=== PATIENT | female | born 1960 | race Caucasian/White ===

== ENCOUNTER → 2016-12-03 | Outpatient (CLI) | payer OTHER ==
--- NOTE | 2016-12-06 08:53 | MM ---
Reason for exam: screening (asymptomatic). Last mammogram was performed 1 year and 4 months ago. History: Patient is nulliparous. Took estrogen for 2 years 8 months beginning at age 46. Took other hormone for 3 years. Physical Findings: A clinical breast exam by your physician is recommended on an annual basis and results should be correlated with mammographic findings. MG Screening Mammo w CAD Bilateral CC and MLO view(s) were taken. Prior study comparison: August 16, 2015, bilateral MG screening mammo w CAD. August 02, 2014, bilateral MG screening mammo w CAD. There are scattered fibroglandular densities. There is no discrete abnormality. ASSESSMENT: Negative, BI-RAD 1 RECOMMENDATION: Routine screening mammogram of both breasts in 1 year.
== END | disposition home or self-care (01) ==
LOC: RADMAMWWP 11:03
PROVIDERS: ATTEND Family Medicine
DX: Z12.31 Encounter for screening mammogram for malignant neoplasm of breast (principal)

== ENCOUNTER → 2017-04-26 | Outpatient (CLI) | payer OTHER ==
--- NOTE | 2017-04-26 12:02 | XR ---
EXAMINATION TYPE: XR shoulder complete RT DATE OF EXAM: 04/26/2017 COMPARISON: NONE HISTORY: Pain TECHNIQUE: Three views are submitted. FINDINGS: The osseous structures are intact. There is no acute fracture or dislocation. The AC joint is maint ained. IMPRESSION: 1. No acute process.
== END ==
LOC: RADXRMAIN 11:33
PROVIDERS: ATTEND Family Medicine
DX: M25.511 Pain in right shoulder (principal)

== ENCOUNTER → 2017-09-24 | Outpatient (CLI) | payer OTHER ==
[2017-09-24 12:16] LABS: Basophils % (A) 1 %; Eosinophils # (A) 0.1 k/uL (0-0.7); Eosinophils % (A) 2 %; HCT 47.6 % (34.0-46.0); HGB 14.6 gm/dL (11.4-16.0); Lymphocytes # (A) 2.5 k/uL (1.0-4.8); Lymphocytes % (A) 28 %; MCH 28.2 pg (25.0-35.0); MCHC 30.6 g/dL (31.0-37.0); MCV 92.2 fL (80.0-100.0); Monocytes # (A) 0.4 k/uL (0-1.0); Monocytes % (A) 5 %; Neutrophils # (A) 5.6 k/uL (1.3-7.7); Neutrophils % (A) 64 %; Platelet Count 272 k/uL (150-450); RBC 5.16 m/uL (3.80-5.40); RDW 12.5 % (11.5-15.5); WBC 8.8 k/uL (3.8-10.6)
[2017-09-24 13:58] LABS: Erythrocyte Sedimentation Rate 6 mm/hr (0-20)
== END ==
LOC: LABWHC1 11:07
PROVIDERS: ATTEND Physical Medicine & Rehabilitation
DX: M47.812 Spondylosis without myelopathy or radiculopathy, cervical region (principal); M50.321 Other cervical disc degeneration at C4-C5 level; M51.17 Intervertebral disc disorders with radiculopathy, lumbosacral region; M47.817 Spondylosis without myelopathy or radiculopathy, lumbosacral region; M54.5 Low back pain; M75.41 Impingement syndrome of right shoulder; M75.42 Impingement syndrome of left shoulder; M71.30 Other bursal cyst, unspecified site; M75.52 Bursitis of left shoulder; M75.51 Bursitis of right shoulder; M25.511 Pain in right shoulder; M25.512 Pain in left shoulder
CPT/HCPCS: 36415; 85025; 85652; 86140

== ENCOUNTER → 2018-05-26 | Outpatient (CLI) | payer OTHER ==
--- NOTE | 2018-05-29 09:17 | MM ---
Reason for exam: screening (asymptomatic). Last mammogram was performed 1 year and 6 months ago. History: Patient is nulliparous. Took estrogen for 2 years 8 months beginning at age 46. Took other hormone for 3 years. Physical Findings: A clinical breast exam by your physician is recommended on an annual basis and results should be correlated with mammographic findings. MG 3D Screening Mammo W/Cad Bilateral CC and MLO view(s) were taken. Prior study comparison: December 03, 2016, bilateral MG screening mammo w CAD. August 16, 2015, bilateral MG screening mammo w CAD. The breast tissue is heterogeneously dense. This may lower the sensitivity of mammography. There is no discrete abnormality. No significant changes when compared with prior studies. ASSESSMENT: Negative, BI-RAD 1 RECOMMENDATION: Routine screening mammogram of both breasts in 1 year.
== END | disposition home or self-care (01) ==
LOC: RADMAMWWP 07:52
PROVIDERS: ATTEND Family Medicine
DX: Z12.31 Encounter for screening mammogram for malignant neoplasm of breast (principal)
CPT/HCPCS: 77063; 77067

== ENCOUNTER → 2024-07-11 | Outpatient (CLI) | payer MEDICARE ==
--- NOTE | 2024-07-11 14:22 | US ---
EXAMINATION TYPE: US arterial LE single level DATE OF EXAM: 07/11/2024 1:28 PM COMPARISONS: None. CLINICAL INDICATION: Female, 64 years old with history of I73.9 PVD; TECHNIQUE: Systolic pressures were taken of the upper and lower extremity arteries with ankle-brachia l indices and toe brachial indices calculated bilaterally. History of: Smoker: No Hypertension: Yes Diabetic: No Hyperlipidemia: No TIA/CVA: No Previous Vascular Surgery: No CAD: No FL: No Vascular Ulcers: No Claudication: Bilateral Gangrene: No FINDINGS: Doppler Waveforms: Right: Multiphasic Left: Biphasic Brachial Artery systolic pressure: Right: 131 Left: 149 Posterior Tibial artery systolic pressure: Right: 166 Left: 166 Dorsalis Pedis artery systolic pressure: Right: 137 Left: 154 Ankle-Brachial Indices: Right: 1.1 Left: 1.1 (Vessel hardening > 1.4; Normal 0.9 - 1.4, Moderate 0.7 - 0.9, Severe 0.5-0.7) IMPRESSION: Normal ankle-brachial brachial indices bilaterally. [facility], , 07/11/2024 2:20 PM
== END | disposition home or self-care (01) ==
LOC: RADUSWWP 12:50
PROVIDERS: ATTEND Internal Medicine
DX: I73.9 Peripheral vascular disease, unspecified (principal); I10 Essential (primary) hypertension
CPT/HCPCS: 93922

== ENCOUNTER 2024-07-19 05:07 | Emergency (ER) | payer MEDICARE ==
[2024-07-19 05:17] VITALS: RESP 18
--- NOTE | 2024-07-19 05:48 | ED ---
General Adult HPI - General Source: patient Mode of arrival: ambulatory <Luis Fernando Hyde - Last Filed: 07/19/24 07:10> <Armando Araiza - Last Filed: 07/20/24 07:42> - General Chief complaint: Abdominal Pain Stated complaint: ABD Pain Time Seen by Provider: 07/19/24 05:08 - History of Present Illness Initial comments: Dictation was produced using CARGO[employer] dictation software. please excuse any grammatical, word or spelling errors. Chief Complaint: 64-year-old female presents with right lower quadrant pain History of Present Illness: Patient 64-year-old female she has history of cholecystectomy, A-fib dyslipidemia states that for the last couple days she has been having right lower quadrant pain. Patient reports extensive history of nephrolithiasis. Recently moved here from [place]. She establish care with urologist recently. She states that they did an ultrasound that did not show any significant blockage. Patient complains of fever. She is where she is having UTI because she is having some suprapubic pressure. Denies any fever. She does endorse some mild chills. Denies any CVA pain. The ROS documented in this emergency department record has been reviewed and confirmed by me. Those systems with pertinent positive or negative responses have been documented in the HPI. All other systems are other negative and/or noncontributory. (Luis Fernando Hyde) - Related Data Previous Rx's Medication Instructions Recorded Cefpodoxime Proxetil [Vantin] 200 mg PO Q12HR 10 Days #20 tab 07/19/24 HYDROcodone/APAP 5-325MG [Smoot 1 tab PO Q6HR PRN #12 tab 07/19/24 5-325] Ibuprofen [Motrin] 600 mg PO Q8HR PRN #24 tab 07/19/24 Allergies Allergy/AdvReac Type Severity Reaction Status Date / Time azithromycin AdvReac Nausea & Verified 07/19/24 05:17 Vomiting & Diarrhea Review of Systems ROS Other: All systems not noted in ROS Statement are negative. <Luis Fernando Hyde - Last Filed: 07/19/24 07:10> ROS Other: All systems not noted in ROS Statement are negative. <Armando Araiza - Last Filed: 07/20/24 07:42> ROS Statement: Those systems with pertinent positive or pertinent negative responses have been documented in the HPI. Past Medical History Past Medical History: Atrial Fibrillation, GERD/Reflux, Hyperlipidemia, Hypertension, Osteoarthritis (OA) History of Any Multi-Drug Resistant Organisms: None Reported Past Surgical History: Cholecystectomy Additional Past Surgical History / Comment(s): Cholecystectomy (2014-) Past Psychological History: Anxiety, Depression Smoking Status: Never smoker Past Alcohol Use History: None Reported Past Drug Use History: None Reported <Luis Fernando Hyde - Last Filed: 07/19/24 07:10> General Exam <Luis Fernando Hyde - Last Filed: 07/19/24 07:10> - General Exam Comments Initial Comments: PHYSICAL EXAM: General Impression: Alert and oriented x3, not in acute distress HEENT: Normocephalic atraumatic, extra-ocular movements intact, pupils equal and reactive to light bilaterally, mucous membranes moist. Cardiovascular: Heart regular rate and rhythm Chest: Able to complete full sentences, no retractions, no tachypnea Abdomen: abdomen soft, non-tender, non-distended, no organomegaly Musculoskeletal: Pulses present and equal in all extremities, no peripheral edema Motor: no focal deficits noted Neurological: CN II-XII grossly intact, no focal motor or sensory deficits noted Skin: Intact with no visualized rashes Psych: Normal affect and mood (Luis Fernando Hyde) Course Vital Signs 07/19/24 07/19/24 07/19/24 05:08 07:49 08:44 Temperature 97.6 F 98.4 F 98.4 F Pulse Rate 69 72 70 Respiratory 18 18 18 Rate Blood Pressure 159/85 148/70 144/87 O2 Sat by Pulse 97 97 97 Oximetry Medical Decision Making - Lab Data Result diagrams: 07/19/24 05:46 07/19/24 05:46 <Luis Fernando Hyde - Last Filed: 07/19/24 07:10> - Lab Data Result diagrams: 07/19/24 05:46 07/19/24 05:46 <Armando Araiza - Last Filed: 07/20/24 07:42> - Medical Decision Making Was pt. sent in by a medical professional or institution (, PA, FAILURE ANALYSIS TECHNICIAN, urgent care, hospital, or penitentiary...) When possible be specific @ -No Did you speak to anyone other than the patient for history (EMS, parent, family, police, friend...)? What history was obtained from this source @ -No Did you review nursing and triage notes (agree or disagree)? Why? @ -I reviewed and agree with nursing and triage notes Were old charts reviewed (outside hosp., previous admission, EMS record, old EKG, old radiological studies, urgent care reports/EKG's, penitentiary records)? Report findings @ -No old charts were reviewed Differential Diagnosis (chest pain, altered mental status, abdominal pain women, abdominal pain men, vaginal bleeding, musculoskeletal, weakness, fever, dyspnea, syncope, headache, dizziness, GI bleed, back pain, seizure, CVA, palpatations, mental health)? @ -Differential Abdominal Pain Women: Appendicitis, Cholecystitis, diverticulosis, ischemic bowel, pancreatitis, hepatitis, UTI, gastroenteritis, AAA, incarcerated hernia, bowel obstruction, constipation, inflammatory bowel, hepatitis, peptic ulcer disease, splenic infarction, perforated viscus, vulvitis, ovarian torsion, PID, kidney stone, placenta abruption, this is not meant to be an all-inclusive list EKG interpreted by me (3pts min.). @ -None done X-rays interpreted by me (1pt min.). @ -None done CT interpreted by me (1pt min.). @ -CT abdomen pelvis without contrast shows 4 mm UVJ stone U/S interpreted by me (1pt. min.). @ -None done What testing was considered but not performed or refused? (CT, X-rays, U/S, labs)? Why? @ -None What meds were considered but not given or refused? Why? @ -None Was smoking cessation discussed for >3mins.? @ -No Were there social determinants of health that impacted care today? How? (Homelessness, low income, unemployed, alcoholism, drug addiction, transportation, low edu. Level, literacy, decrease access to med. care, fdc, rehab)? @ -No Was there de-escalation of care discussed even if they declined (Discuss DNR or withdrawal of care, Hospice)? DNR status @ -No What co-morbidities impacted this encounter? (DM, HTN, Smoking, COPD, CAD, Cancer, CVA, ARF, Chemo, Hep., AIDS, mental health diagnosis, sleep apnea, morbid obesity)? @ -Kidney stones Was patient admitted / discharged? Hospital course, mention meds given and route, prescriptions,, going to OR and other pertinent info. @ -64-year-old female presents emergency department right lower quadrant pain. Patient extensive history of kidney stones. Vital signs upon arrival are within acceptable limits. Patient mild distress. Mild leukocytosis 11.1. CT shows 4 mm UVJ stone with inflammatory findings around the bladder suggesting urinary tract infection. Patient reevaluated at 7:09 AM still having symptoms. She is offered admission to the hospital under urology care. She would prefer to try to have her symptoms managed more. Patient given another dose of pain medication and another liter of fluids. Patient care signed out to Dr. Du at 7:00 AM for further management of patient. Did you discuss the management of the patient with other professionals (professionals i.e. , PA, FAILURE ANALYSIS TECHNICIAN, lab, RT, psych nurse, social media sr strategy manager, vp treasurer, teacher, naval gunfire liaison officer, showcase trimmer)? Give summary @ -No Was critical care preformed (if so, how long)? @ -No Undiagnosed new problem with uncertain prognosis? @ -No Drug Therapy requiring intensive monitoring for toxicity (Heparin, Nitro, Insulin, Cardizem)? @ -No Were any procedures done? @ -No Diagnosis/symptom? Acute, or Chronic, or Acute on Chronic? Uncomplicated (without systemic symptoms) or Complicated (systemic symptoms)? @ -Kidney stone Side effects of treatment? @ -No Exacerbation, Progression, or Severe Exacerbation? @ -No Poses a threat to life or bodily function? How? (Chest pain, USA, ME, pneumonia, PE, COPD, DKA, ARF, appy, cholecystitis, CVA, Diverticulitis, Homicidal, Suicidal, threat to staff... and all critical care pts) @ -yes (Luis Fernando Hyde) 64-year-old female, care had been signed out at shift change awaiting reevaluation of pain control. Patient resting comfortably, pain is controlled in the emergency department. Patient has a urologist that she is currently following with. Urinalysis did show rare bacteria and urine culture is obtained. The patient is given strict return parameters she will monitor for fever, worsening pain. She will call her urologist today and return as needed. (Armando Araiza) - Lab Data Lab Results 12/12/24 12/12/24 12/12/24 Range/Units 05:45 05:46 05:46 WBC 11.1 H (3.8-10.6) k/uL RBC 5.12 (3.80-5.40) m/uL Hgb 15.3 (11.4-16.0) gm/dL Hct 44.9 (34.0-46.0) % MCV 87.7 (80.0-100.0) fL MCH 29.8 (25.0-35.0) pg MCHC 34.0 (31.0-37.0) g/dL RDW 12.7 (11.5-15.5) % Plt Count 286 (150-450) k/uL MPV 8.9 Neutrophils % 68 % Lymphocytes % 23 % Monocytes % 5 % Eosinophils % 3 % Basophils % 1 % Neutrophils # 7.5 (1.3-7.7) k/uL Lymphocytes # 2.6 (1.0-4.8) k/uL Monocytes # 0.5 (0-1.0) k/uL Eosinophils # 0.3 (0-0.7) k/uL Basophils # 0.1 (0-0.2) k/uL Sodium 138 (137-145) mmol/L Potassium 4.7 (3.5-5.1) mmol/L Chloride 109 H (98-107) mmol/L Carbon Dioxide 23 (22-30) mmol/L Anion Gap 6 mmol/L BUN 26 H (7-17) mg/dL Creatinine 0.87 (0.52-1.04) mg/dL Est GFR (CKD-EPI)AfAm 81 (>60 ml/min/1.73 sqM) Est GFR (CKD-EPI)NonAf 70 (>60 ml/min/1.73 sqM) Glucose 128 H (74-99) mg/dL Calcium 9.8 (8.4-10.2) mg/dL Total Bilirubin 1.0 (0.2-1.3) mg/dL AST 36 (14-36) U/L ALT 27 (4-34) U/L Alkaline Phosphatase 77 (38-126) U/L Total Protein 7.3 (6.3-8.2) g/dL Albumin 4.4 (3.5-5.0) g/dL Lipase 158 (23-300) U/L Urine Color Light Red Urine Appearance Cloudy H (Clear) Urine pH 5.5 (5.0-8.0) Ur Specific [place] 1.030 (1.001-1.035) Urine Protein 1+ H (Negative) Urine Glucose (UA) Negative (Negative) Urine Ketones Negative (Negative) Urine Blood Large H (Negative) Urine Nitrite Negative (Negative) Urine Bilirubin Negative (Negative) Urine Urobilinogen <2.0 (<2.0) mg/dL Ur Leukocyte Esterase Small H (Negative) Urine RBC >182 H (0-5) /hpf Urine WBC 13 H (0-5) /hpf Urine WBC Clumps Rare H (None) /hpf Ur Squamous Epith Cells 5 H (0-4) /hpf Calcium Oxalate Crystal Many H (None) /hpf Urine Bacteria Moderate H (None) /hpf Hyaline Casts 8 H (0-2) /lpf Urine Mucus Many H (None) /hpf Urine Yeast (Budding) Occasional H (None) /hpf Disposition <Luis Fernando Hyde - Last Filed: 07/19/24 07:10> Is patient prescribed a controlled substance at d/c from ED?: No Time of Disposition: 08:01 <Armando Araiza - Last Filed: 07/20/24 07:42> Clinical Impression: Calculus of kidney Disposition: HOME SELF-CARE Condition: Fair Instructions (If sedation given, give patient instructions): Kidney Stones (ED) Additional Instructions: Please follow-up with your urologist. Please return with fever, worsening pain, any new concerns. Prescriptions: Ibuprofen [Motrin] 600 mg PO Q8HR PRN #24 tab PRN Reason: Pain HYDROcodone/APAP 5-325MG [Smoot 5-325] 1 tab PO Q6HR PRN #12 tab PRN Reason: Pain Cefpodoxime Proxetil [Vantin] 200 mg PO Q12HR 10 Days #20 tab Referrals: Alfredo Plaza MD [Primary Care Provider] - 1-2 days
[2024-07-19] MEDS: KETOROLAC 15 MG/ML 1 ML VIAL IVP STA (05:51)
[2024-07-19] MEDS: ONDANSETRON 4 MG/2 ML VIAL IVP STA (05:51)
[2024-07-19] MEDS: SODIUM CHLORIDE 0.9% 1,000 ML IV STA ×2 (05:51→07:27)
[2024-07-19 06:01] LABS: Basophils # (A) 0.1 k/uL (0-0.2); Basophils % (A) 1 %; Eosinophils # (A) 0.3 k/uL (0-0.7); Eosinophils % (A) 3 %; HCT 44.9 % (34.0-46.0); HGB 15.3 gm/dL (11.4-16.0); Lymphocytes # (A) 2.6 k/uL (1.0-4.8); Lymphocytes % (A) 23 %; MCH 29.8 pg (25.0-35.0); MCV 87.7 fL (80.0-100.0); Mean Platelet Volume 8.9; Monocytes # (A) 0.5 k/uL (0-1.0); Monocytes % (A) 5 %; Neutrophils # (A) 7.5 k/uL (1.3-7.7); Neutrophils % (A) 68 %; Platelet Count 286 k/uL (150-450); RBC 5.12 m/uL (3.80-5.40); RDW 12.7 % (11.5-15.5); WBC 11.1 k/uL (3.8-10.6)
--- NOTE | 2024-07-19 06:18 | CT ---
EXAMINATION TYPE: CT abdomen pelvis wo con DATE OF EXAM: 07/19/2024 HISTORY: c/o lower right sided abdominal pain + changes in urination including more frequent and smal l amounts of blood CT DLP: 999.6 mGycm. Automated Exposure Control for Dose Reduction was Utilized. TECHNIQUE: CT scan of the abdomen and pelvis is performed without oral or IV contrast. COMPARISON: NONE FINDINGS: Within the limitations of a non-contrast study, the following observations are made. LUNG BASES: No significant abnormality is appreciated. LIVER/GB: Liver is heterogeneously hypodense consistent with diffuse fatty infiltrative hepatocellula r disease. Cholecystectomy clips are present. PANCREAS: No significant abnormality is seen. SPLEEN: No significant abnormality is seen. ADRENALS: No significant abnormality is seen. KIDNEYS: There is 4 mm calculus in distal right ureter axial image 134 causing mild right-sided hydro nephrosis. There is 13 mm nonobstructing calculus in the left kidney upper pole level axial image 51. There is partially exophytic 3.0 cm low dense lesion anterior upper pole left kidney favoring simple thin-walled cyst on axial image 49. No left-sided hydronephrosis. Poorly distended bladder without i ntraluminal calculus. Mild wall thickening and fat stranding. BOWEL: No significant abnormality is seen. GENITAL ORGANS: No gross abnormality seen. LYMPH NODES: No greater than 1cm abdominal or pelvic lymph nodes are appreciated. OSSEOUS STRUCTURES: Slight grade 1 anterolisthesis L4 on L5. OTHER: No significant additional abnormality is seen. IMPRESSION: There is 4 mm calculus distal right ureter causing mild right-sided hydronephrosis. Mild irregular wall thickening within poorly distended bladder raises concern for acute bladder infection. Correlate clinically. [facility], , 07/19/2024 6:16 AM
[2024-07-19 06:30] LABS: Appearance,Urine Cloudy (Clear); Bacteria,Urine Moderate /hpf; Bilirubin,Urine Negative (Negative); Blood,Urine Large (Negative); Budding Yeast,Urine Occasional /hpf; Calcium Oxalate Crystals,Urine Many /hpf; Color,Urine Light Red; Glucose,Urine (UA) Negative (Negative); Hyaline Casts,Urine 8 /lpf (0-2); Ketones,Urine Negative (Negative); Leukocyte Esterase,Urine Small (Negative); Mucus,Urine Many /hpf; Nitrite,Urine Negative (Negative); PH, Urine 5.5 (5.0-8.0); Protein,Urine 1+ (Negative); RBC,Urine >182 /hpf (0-5); Squamous Epithelial Cell,Urine 5 /hpf (0-4); Urobilinogen,Urine <2.0 mg/dL (<2.0); WBC,Urine 13 /hpf (0-5)
[2024-07-19 06:53] LABS: ALT 27 U/L (4-34); AST 36 U/L (14-36); African American GFR (CKD) 81 (>60 ml/min/1.73 sqM); Albumin 4.4 g/dL (3.5-5.0); Alkaline Phosphatase 77 U/L (38-126); Anion Gap 6 mmol/L; Blood Urea Nitrogen 26 mg/dL (7-17); Calcium 9.8 mg/dL (8.4-10.2); Carbon Dioxide 23 mmol/L (22-30); Chloride 109 mmol/L (98-107); Glucose 128 mg/dL (74-99); Lipase 158 U/L (23-300); Non-African American GFR(CKD) 70 (>60 ml/min/1.73 sqM); Potassium 4.7 mmol/L (3.5-5.1); Sodium 138 mmol/L (137-145); Total Protein 7.3 g/dL (6.3-8.2)
[2024-07-19] MEDS: cefTRIAXone IN SWFI 1,000 MG/10 ML SYRINGE IVP STA (07:25)
[2024-07-19 07:51] VITALS: TEMP 98.4
[2024-07-19 08:47] VITALS: BP 144/87; PULSE 70
== END 2024-07-19 08:47 | disposition home or self-care (01) ==
LOC: EC 05:07
DX: N20.0 Calculus of kidney (principal); D72.829 Elevated white blood cell count, unspecified; Z88.1 Allergy status to other antibiotic agents
CPT/HCPCS: 36415; 80053; 83690; 85025; 81001; 87086; 87077; 87186; 74176; 99284; 96374; 96375 ×2; 96361 ×3; J2405; J0696; J1885

== ENCOUNTER → 2024-08-06 | Outpatient (CLI) | payer MEDICARE ==
--- NOTE | 2024-08-09 18:21 | MM ---
Reason for Exam: Screening (asymptomatic). Last mammogram was performed 6 year(s) and 2 month(s) ago. Patient History: Menarche at age 13. Patient has no children. Postmenopausal. Estrogen, starting at age 46 for 2 years, 8 months. Risk Values: Carley 5 year model risk: 1.7%. NCI Lifetime model risk: 6.3%. Prior Study Comparison: 08/16/2015 Bilateral Screening Mammogram, [facility]. 12/03/2016 Bilateral Screening Mammogram, [facility]. 05/26/2018 Bilateral Screening Mammogram, [facility]. Tissue Density: There are scattered areas of fibroglandular density. Findings: Analyzed By CAD. The pattern is symmetrical. No significant interval change No suspicious groups of microcalcifications, spiculated or lobular masses, architectural distortion or other secondary signs of malignancy are mammographically apparent. Overall Assessment: Benign, BI-RAD 2 Management: Screening Mammogram of both breasts in 1 year. A negative mammogram report should not preclude additional follow up of suspicious palpable abnormalities. Patient should continue monthly self breast exam. A clinical breast exam by your physician is recommended on an annual basis and results should be correlated with mammographic findings. Note on Carley scores and lifetime risk: 1. A Carley score greater than 3% is considered moderate risk. If this is the case, consider specialist referral to assess eligibility for a risk reducing agent. 2. If overall lifetime risk for the development of breast cancer is 20% or higher, the patient may qualify for future screening with alternating mammogram and breast MRI. [facility], , 08/09/2024 6:18 PM. Electronically signed and approved by: Ayden Valverde D.O. Radiologis
== END | disposition home or self-care (01) ==
LOC: RADMAMWWP 14:26
PROVIDERS: ATTEND Internal Medicine
DX: Z12.31 Encounter for screening mammogram for malignant neoplasm of breast (principal); Z78.0 Asymptomatic menopausal state; R92.323 Mammographic fibroglandular density, bilateral breasts
CPT/HCPCS: 77063; 77067